=== PATIENT | male | born 1995 | race Caucasian/White ===

== ENCOUNTER 2023-03-07 05:34 | Emergency (ER) | payer MEDICAID ==
[2023-03-07] MEDS ORDERED: Sodium Chloride 0.9% 1000 ML 1,000 ML IV STA (05:46)
[2023-03-07] MEDS ORDERED: BABY ASPIRIN 81 MG CHEW PO ONE (05:46)
[2023-03-07] MEDS ORDERED: Nitrostat 0.4 MG (ED) SL ONE ×2 (05:46→05:59)
[2023-03-07 05:47] VITALS: TEMP 98.2
[2023-03-07] MEDS ORDERED: Sodium Chloride 0.9% 1000 ML 1,000 ML ONE (05:53)
[2023-03-07 05:54] LABS: Hemoglobin 16.6 g/dL (12.5-18.0); Mean Cell Volume 88.9 fL (78-100); Mean Corpuscular Hemoglobin 30.1 pg (26-32); Mean Corpuscular Hgb Concent. 33.9 g/dL (32-36); Mean Platelet Volume 8.5 fL (7.5-11.0); Platelet Count 324 x10^3/uL (150-450); Red Blood Count 5.51 x10^6/uL (4.1-5.6); White Blood Count 10.6 x10^3/uL (4.0-10.5)
--- NOTE | 2023-03-07 06:00 | ERPHSYRPT ---
<CHARLIE ORTIZ - Last Filed: 03/07/23 06:36> - History of Present Illness Time Seen by Provider: 03/07/23 05:43 Historian: patient Exam Limitations: no limitations Patient Subjective Stated Complaint: chest pain Triage Nursing Assessment: pt ambulated into ER without difficulty. Pt c/o chest pain to the left upper chest area and down upper left arm. Pt states, "I woke up at 4am and went to the bathroom and the chest pain started". Lungs clear, heart tones reg. Pt is diaphoretic. No edema noted, pt denies any sob. Pt is a recovering alcoholic. Pt hadn't drank in 2 months but drank a part of a 1/5 of vodka last night due to relationship issues. Physician History: Patient has left-sided chest pain radiating to left arm for the last 1.5 hours prior to come the emergency room with a pressure type sensation. Occurred with minimal exertion as he woke up to go the bathroom started feeling discomfort. Patient's father had a heart attack at age 50 and patient is a type II diabetic and has had a history of cardioversion for SVT 4 times in his life previously. Patient also drank alcohol last night for the first time in 2 months as he is a recovering alcoholic Timing/Duration: hour(s) (1.5) Activities at Onset: none Quality: pressure Location: other (left upper chest) Chest Pain Radiation: arm Severity of Pain-Max: moderate Severity of Pain-Current: moderate Modifying Factors: Improves With: nothing Associated Symptoms: No nausea, No vomiting, No palpitations, No heartburn, No abdominal pain, No shortness of breath, No cough, No hurts to breathe, No diaphoresis, No chills, No fever, No fatigue, No weakness, No syncope, No rash, No headache, No dizziness, No edema Prior Chest Pain/Cardiac Workup: no prior chest pain Nitro Today/Relief: no nitro taken today Aspirin Treatment Today: no aspirin today Allergies/Adverse Reactions: enoxaparin [From Lovenox] Adverse Reaction (Intermediate, Verified 03/07/23 05:55) Rash Home Medications: Metoprolol Succinate 75 mg PO DAILY 03/07/23 [History] dilTIAZem HCL [Cardizem] 30 mg PO DAILY 03/07/23 [History] Hx Tetanus, Diphtheria Vaccination/Date Given: Yes Hx Influenza Vaccination/Date Given: No Hx Pneumococcal Vaccination/Date Given: No Immunizations Up to Date: No Travel Risk - International Travel Have you traveled outside of the country in past 3 weeks: No - Coronavirus Screening Are you exhibiting any of the following symptoms?: No Close contact with a COVID-19 positive Pt in past 14-21 Days: No - Vaccine Status Have you recieved a Covid-19 vaccination: Yes Display Director: Moderna - Vaccination Dates Date of 2cond Vaccination (if applicable): . - Review of Systems Constitutional: No Fever, No Chills Eyes: No Symptoms, No Eye Pain, No Vision Changes Ears, Nose, & Throat: No Symptoms, No Nose Congestion, No Throat Pain Respiratory: No Cough, No Dyspnea Cardiac: Chest Pain, No Edema, No Syncope Abdominal/Gastrointestinal: No Abdominal Pain, No Nausea, No Vomiting, No Diarrhea Genitourinary Symptoms: No Dysuria Musculoskeletal: No Back Pain, No Neck Pain Skin: No Rash, No Skin Lesions Neurological: No Dizziness, No Focal Weakness, No Headache, No Sensory Changes Psychological: No Drug Abuse, No Anxiety, No Suicidal Ideations Endocrine: No Symptoms, No Polydipsia Hematologic/Lymphatic: No Easy Bleeding, No Easy Bruising All Other Systems: Reviewed and Negative - Past Medical History Pertinent Past Medical History: Yes Neurological History: No Pertinent History ENT History: No Pertinent History Cardiac History: Angina, High Cholesterol, Hypertension, Other Respiratory History: Asthma, Bronchitis, Pneumonia, Sleep Apnea Endocrine Medical History: Diabetes Type II Musculoskeletal History: Fractures GI Medical History: GERD History: No Pertinent History Psycho-Social History: Anxiety, Depression, Other Male Reproductive Disorders: No Pertinent History Other Medical History: PTSD. SVT, cardioversion x4 - Past Surgical History Past Surgical History: Yes Neuro Surgical History: No Pertinent History Cardiac: No Pertinent History Respiratory: No Pertinent History Gastrointestinal: No Pertinent History Genitourinary: No Pertinent History Musculoskeletal: Orthopedic Surgery Male Surgical History: No Pertinent History Other Surgical History: Lt arm - Social History Smoking Status: Never smoker Exposure to second hand smoke: No Drug Use: none Patient Lives Alone: Yes - Physical Exam General Appearance: no apparent distress, alert Eye Exam: PERRL/EOMI, eyes nml inspection Ears, Nose, Throat Exam: normal ENT inspection, moist mucous membranes Neck Exam: normal inspection, non-tender, supple, full range of motion Respiratory Exam: normal breath sounds, lungs clear, No respiratory distress Cardiovascular Exam: regular rate/rhythm, normal heart sounds Gastrointestinal/Abdomen Exam: soft, No tenderness, No mass Back Exam: normal inspection, No CVA tenderness, No vertebral tenderness Extremity Exam: normal inspection, normal range of motion Neurologic Exam: alert, oriented x 3, cooperative, normal mood/affect, sensation nml, No motor deficits Skin Exam: normal color, warm, dry SpO2: 96 - Course Nursing assessment & vital signs reviewed: Yes EKG Interpreted by Me: RATE (94), NORMAL AXIS, NORMAL INTERVALS (Normal SC interval), prolonged QT interval (482 ms), NORMAL QRS, Other (Incomplete right bundle branch block; negative previous EKG for comparison) - Radiology Exams Chest X-ray Interpretation: Interpreted by me, Reviewed by me, Negative, No Fracture, No Pneumonia, No Pneumothorax, Nml Heart Size, Nml Mediastinum - Departure Clinical Impression: Alcohol use Chest pain Qualifiers: Chest pain type: other chest pain Qualified Code(s): R07.89 - Other chest pain Condition: Good Critical Care Time: No Referrals: NURY LANDA MD [Primary Care Provider] - Follow up/PCP as directed Instructions: Chest Pain (DC) <RENÉE ALMENDAREZ - Last Filed: 03/07/23 10:11> - Nursing Vital Signs Nursing Vital Signs: Initial Vital Signs Temperature 98.2 F 03/07/23 05:42 Pulse Rate 93 H 03/07/23 05:42 Respiratory Rate 24 03/07/23 05:42 Blood Pressure 160/128 03/07/23 05:42 O2 Sat by Pulse Oximetry 96 03/07/23 05:42 Pain Scale Pain Intensity 0 Ordered Tests: Active Orders 24 hr Category Date Time Status News Correspondent STAT Care 03/07/23 05:47 Active Clean Catch Urine Specimen STAT Care 03/07/23 05:46 Active EKG-ER Only STAT Care 03/07/23 05:46 Active IV Insertion STAT Care 03/07/23 05:46 Active CHEST 1 VIEW (PORTABLE) Stat Exams 03/07/23 05:47 Completed CBC W DIFF Stat Lab 03/07/23 05:50 Completed CK-Creatinine Phosphokinase Stat Lab 03/07/23 05:50 Completed CMP Stat Lab 03/07/23 05:50 Completed D-DIMER QUANTITATIVE Stat Lab 03/07/23 05:50 Completed ETHYL ALCOHOL Stat Lab 03/07/23 07:39 Completed LIPASE Stat Lab 03/07/23 05:50 Completed MAGNESIUM Stat Lab 03/07/23 05:50 Completed Manual Differential NC Stat Lab 03/07/23 05:50 Completed NT PRO BNPII Stat Lab 03/07/23 05:50 Completed PROTIME WITH INR Stat Lab 03/07/23 05:50 Completed TROPONIN Q4H Lab 03/07/23 05:50 Completed TROPONIN Q4H Lab 03/07/23 08:03 Completed TROPONIN Q4H Lab 03/07/23 14:00 Ordered UA W/RFX UR CULTURE Stat Lab 03/07/23 07:36 Completed Urine Triage Profile Stat Lab 03/07/23 06:11 Completed Medication Summary Discontinued Medications Generic Name Dose Route Start Last Admin Trade Name Freq PRN Reason Stop Dose Admin Aspirin 324 mg 03/07/23 05:46 03/07/23 05:53 Aspirin 81 Mg Tab.Chew PO 03/07/23 05:47 324 mg STAT ONE Administration Sodium Chloride 1,000 mls @ 999 mls/hr 03/07/23 05:46 03/07/23 07:09 Sodium Chloride 0.9% 1000 Ml IV 03/07/23 06:46 Infused .Q1H1M STA Infusion Sodium Chloride Confirm 03/07/23 05:53 Sodium Chloride 0.9% 1000 Ml Administered 03/07/23 05:54 Dose 1,000 mls @ ud .ROUTE .STK-MED ONE Lorazepam Confirm 03/07/23 07:10 Lorazepam 2 Mg/1 Ml 2 Mg Vial Administered 03/07/23 07:11 Dose 2 mg .ROUTE .STK-MED ONE Lorazepam 1 mg 03/07/23 07:15 03/07/23 08:33 Lorazepam 2 Mg/1 Ml 2 Mg Vial IV 03/07/23 07:16 Not Given STAT ONE Metoclopramide HCl 10 mg 03/07/23 08:11 03/07/23 08:13 Metoclopramide Hcl 10 Mg/2 Ml Vial IV 03/07/23 08:12 10 mg STAT ONE Administration Metoclopramide HCl Confirm 03/07/23 08:11 Metoclopramide Hcl 10 Mg/2 Ml Vial Administered 03/07/23 08:12 Dose 10 mg .ROUTE .STK-MED ONE Nitroglycerin 0.4 mg 03/07/23 05:46 03/07/23 05:54 Nitroglycerin 0.4 Mg (Ed) 0.4 Mg Tab.Subl SL 03/07/23 05:47 0.4 mg STAT ONE Administration Nitroglycerin 0.4 mg 03/07/23 05:59 03/07/23 05:59 Nitroglycerin 0.4 Mg (Ed) 0.4 Mg Tab.Subl SL 03/07/23 06:00 0.4 mg STAT ONE Administration Ondansetron HCl Confirm 03/07/23 07:09 Ondansetron Hcl 4 Mg/2 Ml Vial Administered 03/07/23 07:10 Dose 4 mg .ROUTE .STK-MED ONE Ondansetron HCl 4 mg 03/07/23 07:14 03/07/23 07:21 Ondansetron Hcl 4 Mg/2 Ml Vial IV 03/07/23 07:15 4 mg STAT ONE Administration Lab/Rad Data: Laboratory Result Diagrams 03/07/23 05:50 03/07/23 05:50 Laboratory Results 03/07/23 03/07/23 03/07/23 Range/Units 08:03 07:39 07:36 WBC (4.0-10.5) x10^3/uL RBC (4.1-5.6) x10^6/uL Hgb (12.5-18.0) g/dL Hct (42-50) % MCV (78-100) fL MCH (26-32) pg MCHC (32-36) g/dL RDW (11.5-14.0) % Plt Count (150-450) x10^3/uL MPV (7.5-11.0) fL Segmented Neutrophils (36.-66.) % Lymphocytes (Manual) (24-44) % Monocytes (Manual) (0.0-12.0) % Eosinophils (Manual) (0.00-3.0) % Platelet Estimate (NORMAL) RBC Morphology PT (9.4-12.5) SECONDS INR (0.8-3.0) D-Dimer (0.0-0.50) mg/L Sodium (137-145) mmol/L Potassium (3.5-5.1) mmol/L Chloride (98-107) mmol/L Carbon Dioxide (22-30) mmol/L Anion Gap (5-15) MEQ/L BUN (9-20) mg/dL Creatinine (0.66-1.25) mg/dL Estimated GFR ML/MIN Glucose (74-106) mg/dL Calcium (8.4-10.2) mg/dL Magnesium (1.6-2.3) mg/dL Total Bilirubin (0.2-1.3) mg/dL AST (17-59) U/L ALT (0-50) U/L Alkaline Phosphatase (38-126) U/L Creatine Kinase (55-170) U/L Troponin I < 0.012 (0.000-0.034) ng/mL NT-Pro-B Natriuret Pep (<300) pg/mL Serum Total Protein (6.3-8.2) g/dL Albumin (3.5-5.0) g/dL Lipase (23-300) U/L Urine Color Dark Yellow (Yellow) Urine Appearance Clear (Clear) Urine pH 5.5 (4.6-8.0) Ur Specific [place] >=1.030 A (1.005-1.030) Urine Protein 100 A (Negative) Urine Glucose (UA) Negative (Negative) mg/dL Urine Ketones 15 A (Negative) Urine Blood Negative (Negative) Urine Nitrite Negative (Negative) Urine Bilirubin Negative (Negative) Urine Urobilinogen 1.0 A (0.2) mg/dL Ur Leukocyte Esterase Negative (Negative) U Hyaline Cast (Auto) 3-5 A (0-2) /LPF Urine Microscopic RBC 0-2 (0-5) /HPF Urine Microscopic WBC 3-5 (0-5) /HPF Ur Epithelial Cells None Seen (None Seen) /HPF Urine Bacteria None Seen (None Seen) /HPF Urine Culture Reflexed NO (NO) Urine Opiates Level (NEGATIVE) Ur Methadone (NEGATIVE) Urine Barbiturates (NEGATIVE) Ur Phencyclidine (PCP) (NEGATIVE) Urine Amphetamine (NEGATIVE) U Benzodiazepine Level (NEGATIVE) Urine Cocaine (NEGATIVE) Urine Marijuana (THC) (NEGATIVE) Ethyl Alcohol 319 H (0-10) mg/dL 03/07/23 03/07/23 03/07/23 Range/Units 06:11 05:50 05:50 WBC (4.0-10.5) x10^3/uL RBC (4.1-5.6) x10^6/uL Hgb (12.5-18.0) g/dL Hct (42-50) % MCV (78-100) fL MCH (26-32) pg MCHC (32-36) g/dL RDW (11.5-14.0) % Plt Count (150-450) x10^3/uL MPV (7.5-11.0) fL Segmented Neutrophils (36.-66.) % Lymphocytes (Manual) (24-44) % Monocytes (Manual) (0.0-12.0) % Eosinophils (Manual) (0.00-3.0) % Platelet Estimate (NORMAL) RBC Morphology PT 10.9 (9.4-12.5) SECONDS INR 1.00 (0.8-3.0) D-Dimer 0.41 (0.0-0.50) mg/L Sodium (137-145) mmol/L Potassium (3.5-5.1) mmol/L Chloride (98-107) mmol/L Carbon Dioxide (22-30) mmol/L Anion Gap (5-15) MEQ/L BUN (9-20) mg/dL Creatinine (0.66-1.25) mg/dL Estimated GFR ML/MIN Glucose (74-106) mg/dL Calcium (8.4-10.2) mg/dL Magnesium (1.6-2.3) mg/dL Total Bilirubin (0.2-1.3) mg/dL AST (17-59) U/L ALT (0-50) U/L Alkaline Phosphatase (38-126) U/L Creatine Kinase (55-170) U/L Troponin I < 0.012 (0.000-0.034) ng/mL NT-Pro-B Natriuret Pep (<300) pg/mL Serum Total Protein (6.3-8.2) g/dL Albumin (3.5-5.0) g/dL Lipase (23-300) U/L Urine Color (Yellow) Urine Appearance (Clear) Urine pH (4.6-8.0) Ur Specific [place] (1.005-1.030) Urine Protein (Negative) Urine Glucose (UA) (Negative) mg/dL Urine Ketones (Negative) Urine Blood (Negative) Urine Nitrite (Negative) Urine Bilirubin (Negative) Urine Urobilinogen (0.2) mg/dL Ur Leukocyte Esterase (Negative) U Hyaline Cast (Auto) (0-2) /LPF Urine Microscopic RBC (0-5) /HPF Urine Microscopic WBC (0-5) /HPF Ur Epithelial Cells (None Seen) /HPF Urine Bacteria (None Seen) /HPF Urine Culture Reflexed (NO) Urine Opiates Level NEGATIVE (NEGATIVE) Ur Methadone NEGATIVE (NEGATIVE) Urine Barbiturates NEGATIVE (NEGATIVE) Ur Phencyclidine (PCP) NEGATIVE (NEGATIVE) Urine Amphetamine NEGATIVE (NEGATIVE) U Benzodiazepine Level NEGATIVE (NEGATIVE) Urine Cocaine NEGATIVE (NEGATIVE) Urine Marijuana (THC) NEGATIVE (NEGATIVE) Ethyl Alcohol (0-10) mg/dL 03/07/23 03/07/23 Range/Units 05:50 05:50 WBC 10.6 H (4.0-10.5) x10^3/uL RBC 5.51 (4.1-5.6) x10^6/uL Hgb 16.6 (12.5-18.0) g/dL Hct 49.0 (42-50) % MCV 88.9 (78-100) fL MCH 30.1 (26-32) pg MCHC 33.9 (32-36) g/dL RDW 14.0 (11.5-14.0) % Plt Count 324 (150-450) x10^3/uL MPV 8.5 (7.5-11.0) fL Segmented Neutrophils 40 (36.-66.) % Lymphocytes (Manual) 52 H (24-44) % Monocytes (Manual) 6 (0.0-12.0) % Eosinophils (Manual) 2 (0.00-3.0) % Platelet Estimate NORMAL (NORMAL) RBC Morphology NORMAL PT (9.4-12.5) SECONDS INR (0.8-3.0) D-Dimer (0.0-0.50) mg/L Sodium 142 (137-145) mmol/L Potassium 3.5 (3.5-5.1) mmol/L Chloride 97 L (98-107) mmol/L Carbon Dioxide 25 (22-30) mmol/L Anion Gap 23.2 H (5-15) MEQ/L BUN 14 (9-20) mg/dL Creatinine 0.91 (0.66-1.25) mg/dL Estimated GFR > 60.0 ML/MIN Glucose 119 H (74-106) mg/dL Calcium 9.0 (8.4-10.2) mg/dL Magnesium 2.0 (1.6-2.3) mg/dL Total Bilirubin 0.70 (0.2-1.3) mg/dL AST 112 H (17-59) U/L ALT 151 H (0-50) U/L Alkaline Phosphatase 69 (38-126) U/L Creatine Kinase 435 H (55-170) U/L Troponin I (0.000-0.034) ng/mL NT-Pro-B Natriuret Pep < 20.0 (<300) pg/mL Serum Total Protein 8.9 H (6.3-8.2) g/dL Albumin 4.9 (3.5-5.0) g/dL Lipase 80 (23-300) U/L Urine Color (Yellow) Urine Appearance (Clear) Urine pH (4.6-8.0) Ur Specific [place] (1.005-1.030) Urine Protein (Negative) Urine Glucose (UA) (Negative) mg/dL Urine Ketones (Negative) Urine Blood (Negative) Urine Nitrite (Negative) Urine Bilirubin (Negative) Urine Urobilinogen (0.2) mg/dL Ur Leukocyte Esterase (Negative) U Hyaline Cast (Auto) (0-2) /LPF Urine Microscopic RBC (0-5) /HPF Urine Microscopic WBC (0-5) /HPF Ur Epithelial Cells (None Seen) /HPF Urine Bacteria (None Seen) /HPF Urine Culture Reflexed (NO) Urine Opiates Level (NEGATIVE) Ur Methadone (NEGATIVE) Urine Barbiturates (NEGATIVE) Ur Phencyclidine (PCP) (NEGATIVE) Urine Amphetamine (NEGATIVE) U Benzodiazepine Level (NEGATIVE) Urine Cocaine (NEGATIVE) Urine Marijuana (THC) (NEGATIVE) Ethyl Alcohol (0-10) mg/dL Medical Desision Making - Discussion of managment Care discussed with:: on-call "doc" (Discussed at the time of changeover the patient's test results treatment plan and disposition.) Reviewed:: Test results Agreed on:: Treatment plan Will see patient: in ED - Diagnostic Testing Diagnostic test were ordered, analyzed, and reviewed by me: Yes Radiological Interpretation: Reviewed by me - Risk of complications Low Risk: Low risk of morbidity from additional dx testing or treatment - Departure Critical Care Time: No
[2023-03-07 06:13] LABS: D-DIMER QUANTITATIVE 0.41 mg/L (0.0-0.50); PROTIME 10.9 SECONDS (9.4-12.5)
[2023-03-07 06:22] LABS: ALBUMIN 4.9 g/dL (3.5-5.0); ALKALINE PHOSPHATASE 69 U/L (38-126); ANION GAP 23.2 MEQ/L (5-15); BLOOD UREA NITROGEN 14 mg/dL (9-20); CHLORIDE 97 mmol/L (98-107); CK-Creatinine Phosphokinase 435 U/L (55-170); Carbon Dioxide 25 mmol/L (22-30); Creatinine 1 0.91 mg/dL (0.66-1.25); EST GLOMERULAR FILTRATION RATE > 60.0 ML/MIN; Glucose 119 mg/dL (74-106); LIPASE 80 U/L (23-300); NT PRO BNPII < 20.0 pg/mL (<300); Potassium 3.5 mmol/L (3.5-5.1); SGOT/AST 112 U/L (17-59); SGPT/ALT 151 U/L (0-50); SODIUM 142 mmol/L (137-145); Total Protein 8.9 g/dL (6.3-8.2)
[2023-03-07 06:45] LABS: Eosinophil 2 % (0.00-3.0); Lymphocytes 52 % (24-44); Monocyte 6 % (0.0-12.0); Neutrophils 40 % (36.-66.); Platelet Estimate NORMAL (NORMAL); Total Cells Counted 100
[2023-03-07 06:47] LABS: Amphetamine,Urine NEGATIVE (NEGATIVE); Barbiturate,Urine NEGATIVE (NEGATIVE); Benzodiazepine,Urine NEGATIVE (NEGATIVE); Cocaine,Urine NEGATIVE (NEGATIVE); Methadone,Urine NEGATIVE (NEGATIVE); Opiate,Urine NEGATIVE (NEGATIVE); PCP,Urine NEGATIVE (NEGATIVE); THC,Urine NEGATIVE (NEGATIVE)
[2023-03-07] MEDS ORDERED: Zofran 4 MG/2 ML VIAL ONE (07:09)
[2023-03-07] MEDS ORDERED: Ativan 2 MG/1 ML VIAL ONE (07:10)
[2023-03-07] MEDS ORDERED: Zofran 4 MG/2 ML VIAL IV ONE (07:14)
[2023-03-07] MEDS ORDERED: Ativan 2 MG/1 ML VIAL IV ONE (07:15)
[2023-03-07 07:45] LABS: Appearance Clear (Clear); Bacteria None Seen /HPF (None Seen); Bilirubin Negative (Negative); Blood Negative (Negative); Epithelial Cells None Seen /HPF (None Seen); Glucose, Urine Negative (Negative); Ketones 15 (Negative); Leukocyte Esterase Negative (Negative); Nitrite Negative (Negative); Ph 5.5 (4.6-8.0); Protein,Urine Dip 100 (Negative); RBC 0-2 /HPF (0-5); Specific Gravity >=1.030 (1.005-1.030)
[2023-03-07 07:47] LABS: ADD URINE CULTURE? NO (NO)
[2023-03-07 07:54] VITALS: BP 102/69
[2023-03-07] MEDS ORDERED: Reglan 10 MG/2 ML IV ONE (08:11)
[2023-03-07] MEDS ORDERED: Reglan 10 MG/2 ML ONE (08:11)
--- NOTE | 2023-03-07 08:42 | XRAY ---
Indication: Chest pain. Comparison: None Portable chest demonstrates normal heart, lungs, and bony thorax.
[2023-03-07 10:14] VITALS: PULSE 114; RESP 12; O2SAT 96
== END 2023-03-07 10:30 | disposition home or self-care (01) ==
LOC: ED 05:34
DX: R07.89 Other chest pain (principal); F10.90 Alcohol use, unspecified, uncomplicated; Y90.8 Blood alcohol level of 240 mg/100 ml or more; E78.5 Hyperlipidemia, unspecified; E11.9 Type 2 diabetes mellitus without complications; Z79.899 Other long term (current) drug therapy
CPT/HCPCS: 36000; 36415; 71045; 80053; 80307; 81001; 82077; 82550; 83690; 83735; 83880; 84484; 85025; 85379; 85610; 93005; 93041; 96374; 96375; 99284; J2060; J2405; A9270-GY